=== PATIENT | male | born 1930 | race Caucasian/White ===

== ENCOUNTER → 2016-06-14 | Outpatient (CLI) | payer OTHER ==
[~2016-06-14] MED LIST: ANCEF,KEFZOL1 GM IM; ANCEF,KEFZOL1 GM IV; ATIVAN0.5 MG PO; BUSPAR5 MG PO; CITALOPRAM HBR10 MG PO; CORTIZONE-10 PL57 GM TP; CYANOCOBALAM1000 MCG PO; DOCUSATE SODIU100 MG PO; DULCOLAX10 MG PR; ELIQUIS2.5 MG PO; FLEET MINERAL133 ML PR; FLONASE16 G1 BOTH NARES; GABAPENTIN100 MG PO; GLUCAGEN1 MG IM; GLUTOSE 1537.5 GM PO; HEPARIN SO5000 UNITS SC; LANTUS 10100 UNITS/ SC; LEVEMIR FL100 UNIT/1 SC; LEVEMIR100 UNIT/2 SC; LO-DOSE ASPIRIN81 M1 PO; LOSARTAN-HCTZ1 EAC2 PO; MECLIZINE HCL25 MG PO; MILK OF MAGN PO; NADOLOL40 MG PO; NIFEDIPINE ER60 MG PO; PRAVACHOL80 MG PO; PRAVASTATIN SOD80 MG PO; PROTONIX40 MG PO; SANTYL30 GM TP; TRAMADOL HCL50 MG PO; TYLENOL EXTRA500 MG PO; WELCHOL625 MG PO
== END | disposition home or self-care (01) ==
DX: R13.10 Dysphagia, unspecified (principal); G93.40 Encephalopathy, unspecified
CPT/HCPCS: 92611 GN; G8996 GN; G8997 GN; G8998 GN

== ENCOUNTER 2016-06-22 07:27 | Emergency (ER) | payer OTHER ==
[~2016-06-22] VITALS: Ht 167.6 cm; Wt 48.9 kg
[~2016-06-22 07:27] MED LIST changes: -BUSPAR5 MG PO; -CITALOPRAM HBR10 MG PO; -CYANOCOBALAM1000 MCG PO; -GABAPENTIN100 MG PO; -WELCHOL625 MG PO
[2016-06-22] MEDS ORDERED: LANTUS 10100 UNITS/ SC (07:46)
[2016-06-22] MEDS ORDERED: GABAPENTIN100 MG PO (07:48)
[2016-06-22] MEDS ORDERED: WELCHOL625 MG PO (07:48)
[2016-06-22] MEDS ORDERED: CYANOCOBALAM1000 MCG PO (07:48)
[2016-06-22] MEDS ORDERED: CITALOPRAM HBR10 MG PO (07:48)
[2016-06-22] MEDS ORDERED: BUSPAR5 MG PO (07:49)
[2016-06-22 08:23] VITALS: BP 169/79
== END 2016-06-22 08:55 | disposition home or self-care (01) ==
LOC: EME 07:27
DX: S09.90XA Unspecified injury of head, initial encounter (principal); S00.01XA Abrasion of scalp, initial encounter; W18.09XA Striking against other object with subsequent fall, initial encounter; Y92.009 Unspecified place in unspecified non-institutional (private) residence as the place of occurrence of the external cause; E11.9 Type 2 diabetes mellitus without complications; J44.9 Chronic obstructive pulmonary disease, unspecified; E78.5 Hyperlipidemia, unspecified; I10 Essential (primary) hypertension; I25.2 Old myocardial infarction; Z91.81 History of falling; Z79.4 Long term (current) use of insulin; Z79.82 Long term (current) use of aspirin; Z87.891 Personal history of nicotine dependence
CPT/HCPCS: 99281; 99284

== ENCOUNTER 2016-10-29 04:55 | Emergency (ER) | payer OTHER ==
[~2016-10-29] VITALS: Ht 167.6 cm; Wt 54.0 kg
[~2016-10-29 04:55] MED LIST changes: +BUSPAR5 MG PO; +CITALOPRAM HBR10 MG PO; +CYANOCOBALAM1000 MCG PO; +GABAPENTIN100 MG PO; +WELCHOL625 MG PO
[2016-10-29 06:32] LABS: MCH 30.2 PG (29.0-34.0); MCHC 34.3 G/DL (30.0-36.0); MEAN PLAT.VOLUME 10.7 uM^3 (9.0-12.4); PLATELET COUNT 175 K/uL (156-360); RBC DIS.WIDTH-CV 12.2 % (11.8-14.6); RBC DIS.WIDTH-SD 39.5 % (39-53); WHITE BLOOD COUNT 9.6 K/uL (4.1-10.2)
[2016-10-29 06:44] LABS: CHLORIDE 102 mEq/L (99-109); SODIUM 136 mEq/L (136-147)
[2016-10-29 06:46] LABS: GLUCOSE 156 mg/dL (70-99)
[2016-10-29 06:47] LABS: ANION GAP 8 MEQ/L (2-14)
[2016-10-29 06:50] LABS: GFR ESTIMATE (CALCULATED) > 59 mL/min/
[2016-10-29 06:51] LABS: UREA NITROGEN (BUN) 19 mg/dL (9-23)
[2016-10-29 06:53] LABS: TROP-I INTERPRETATION NEGATIVE; TROPONIN-I < 0.01 ng/mL (0.0-0.30)
[2016-10-29 08:30] VITALS: BP 136/57
== END 2016-10-29 08:31 | disposition home or self-care (01) ==
LOC: EME 04:55
PROVIDERS: Emergency Medicine
PROC: 0HQ0XZZ Repair Scalp Skin, External Approach (ICD-10-PCS; principal; 2016-10-29)
DX: S00.93XA Contusion of unspecified part of head, initial encounter (principal); S30.0XXA Contusion of lower back and pelvis, initial encounter; S01.01XA Laceration without foreign body of scalp, initial encounter; W18.30XA Fall on same level, unspecified, initial encounter; Y92.129 Unspecified place in nursing home as the place of occurrence of the external cause; E11.9 Type 2 diabetes mellitus without complications; J44.9 Chronic obstructive pulmonary disease, unspecified; E78.5 Hyperlipidemia, unspecified; I10 Essential (primary) hypertension; I25.2 Old myocardial infarction; Z79.84 Long term (current) use of oral hypoglycemic drugs; Z79.82 Long term (current) use of aspirin; Z87.891 Personal history of nicotine dependence
CPT/HCPCS: 70450; 72100; 72125; 72220; 80048; 84484; 85027; 93005; 99281; 99285

== ENCOUNTER 2016-11-23 09:56 | Emergency (ER) | payer OTHER ==
[~2016-11-23] VITALS: Ht 167.6 cm; Wt 53.8 kg
[2016-11-23 10:17] LABS: POINT-OF-CARE METER ID UU13113747
[2016-11-23 12:32] VITALS: BP 162/74
== END 2016-11-23 12:33 | disposition home or self-care (01) ==
LOC: EME 09:56
PROVIDERS: Emergency Medicine
PROC: 0HQ0XZZ Repair Scalp Skin, External Approach (ICD-10-PCS; principal; 2016-11-23)
DX: S01.01XA Laceration without foreign body of scalp, initial encounter (principal); W01.198A Fall on same level from slipping, tripping and stumbling with subsequent striking against other object, initial encounter; Y93.9 Activity, unspecified; E11.9 Type 2 diabetes mellitus without complications; J44.9 Chronic obstructive pulmonary disease, unspecified; E78.5 Hyperlipidemia, unspecified; I10 Essential (primary) hypertension; I25.2 Old myocardial infarction; Z79.4 Long term (current) use of insulin; Z79.82 Long term (current) use of aspirin; Z87.891 Personal history of nicotine dependence
CPT/HCPCS: 70450; 71010; 72170; 82948; 99281; 99284

== ENCOUNTER 2017-01-21 21:18 | Emergency (ER) | payer OTHER ==
[~2017-01-21] VITALS: Ht 167.6 cm; Wt 52.3 kg
[2017-01-21 23:55] VITALS: BP 152/71
== END 2017-01-21 23:56 | disposition home or self-care (01) ==
LOC: EME → EDBD 21:18 → EME 23:56
DX: M25.552 Pain in left hip (principal); W18.30XA Fall on same level, unspecified, initial encounter; E11.9 Type 2 diabetes mellitus without complications; Z79.4 Long term (current) use of insulin; I25.2 Old myocardial infarction; E78.5 Hyperlipidemia, unspecified; I10 Essential (primary) hypertension; Z79.82 Long term (current) use of aspirin; Z87.891 Personal history of nicotine dependence
CPT/HCPCS: 73502; 99281; 99284

== ENCOUNTER 2017-12-15 12:09 | Emergency (ER) | payer OTHER ==
[~2017-12-15] VITALS: Ht 167.6 cm; Wt 52.8 kg
[2017-12-15 12:41] LABS: BASOPHIL (%) 0.8 % (0-1); BASOPHIL COUNT 0.1 K/uL (0-0.1); EOSINOPHIL (%) 3.1 % (0-5); EOSINOPHIL COUNT 0.2 K/uL (0-0.3); HEMATOCRIT 40.1 % (38.0-50.0); HEMOGLOBIN 13.8 G/DL (12.5-16.6); IMMATURE GRANULOCYTE (%) 0.3 % (0.0-0.7); LYMPHOCYTE (%) 24.8 % (15-42); LYMPHOCYTE COUNT 1.6 K/uL (1.0-2.8); MCH 31.2 PG (29.0-34.0); MCHC 34.4 G/DL (30.0-36.0); MCV 90.7 FL (86-99); MONOCYTE COUNT 0.7 K/uL (0-0.8); NEUTROPHIL COUNT 3.9 K/uL (1.8-6.4); PLATELET COUNT 161 K/uL (156-360); RBC DIS.WIDTH-CV 12.9 % (11.8-14.6); RBC DIS.WIDTH-SD 42.5 % (39-53); RED BLOOD COUNT 4.42 M/uL (4.00-5.50); WHITE BLOOD COUNT 6.5 K/uL (4.1-10.2)
[2017-12-15 12:53] LABS: ALBUMIN 3.8 g/dL (3.2-4.8); CHLORIDE 104 mEq/L (99-109); POTASSIUM 4.1 mEq/L (3.7-5.4); SODIUM 139 mEq/L (136-147)
[2017-12-15 12:55] LABS: GLUCOSE 88 mg/dL (70-99); TOTAL PROTEIN 6.6 g/dL (6.4-8.3)
[2017-12-15 12:57] LABS: TOTAL BILIRUBIN 0.5 mg/dL (0.0-1.0)
[2017-12-15 12:59] LABS: ALKALINE PHOSPHATASE 62 IU/L (3-129); CREATININE 0.9 mg/dL (0.6-1.3); GFR ESTIMATE (CALCULATED) > 59 mL/min/ (58.99-99999)
[2017-12-15 13:00] LABS: UREA NITROGEN (BUN) 22 mg/dL (9-23)
[2017-12-15 13:01] LABS: AST (GOT) 17 IU/L (2-34)
[2017-12-15 13:02] LABS: ALT (GPT) 14 IU/L (3-49); TROP-I INTERPRETATION NEGATIVE; TROPONIN-I < 0.01 ng/mL (0.0-0.30)
[2017-12-15 14:39] LABS: APPEARANCE CLEAR ((CLEAR)); BILIRUBIN NEGATIVE; BLOOD NEGATIVE; COLOR YELLOW ((YELLOW)); GLUCOSE (STRIP) NEGATIVE; KETONES NEGATIVE; LEUKOCYTES NEGATIVE; NITRITE NEGATIVE; PROTEIN (STRIP) 30; SPECIFIC GRAVITY 1.017 (1.000-1.030); UCUL ADDED? NO; UROBILINOGEN 0.2 MG/DL (0.2-1.0)
[2017-12-15 16:10] VITALS: BP 141/54
== END 2017-12-15 16:12 ==
LOC: EME 12:09
PROVIDERS: Emergency Medicine
DX: R55 Syncope and collapse (principal); W18.30XA Fall on same level, unspecified, initial encounter; I10 Essential (primary) hypertension; E11.9 Type 2 diabetes mellitus without complications; E78.5 Hyperlipidemia, unspecified; J43.9 Emphysema, unspecified; F41.9 Anxiety disorder, unspecified; F03.90 Unspecified dementia, unspecified severity, without behavioral disturbance, psychotic disturbance, mood disturbance, and anxiety; I25.2 Old myocardial infarction; Z79.4 Long term (current) use of insulin; Z79.82 Long term (current) use of aspirin; Z91.81 History of falling; Z87.891 Personal history of nicotine dependence; Z88.0 Allergy status to penicillin
CPT/HCPCS: 70450; 71045; 72125; 80053; 81003; 84484; 85025; 93005; 99281; 99284; J7040

== ENCOUNTER 2018-02-01 12:10 | Emergency (ER) | payer OTHER ==
[~2018-02-01] VITALS: Ht 167.6 cm; Wt 65.0 kg
[2018-02-01 12:41] LABS: BASOPHIL (%) 0.4 % (0-1); EOSINOPHIL (%) 1.6 % (0-5); EOSINOPHIL COUNT 0.1 K/uL (0-0.3); HEMATOCRIT 40.9 % (38.0-50.0); HEMOGLOBIN 14.1 G/DL (12.5-16.6); IMMATURE GRANULOCYTE (%) 0.3 % (0.0-0.7); LYMPHOCYTE (%) 24.3 % (15-42); LYMPHOCYTE COUNT 1.8 K/uL (1.0-2.8); MCH 31.3 PG (29.0-34.0); MCHC 34.5 G/DL (30.0-36.0); MCV 90.9 FL (86-99); MONOCYTE (%) 9.3 % (3-12); MONOCYTE COUNT 0.7 K/uL (0-0.8); NEUTROPHIL (%) 64.1 % (45-76); NEUTROPHIL COUNT 4.8 K/uL (1.8-6.4); PLATELET COUNT 153 K/uL (156-360); RBC DIS.WIDTH-CV 13.2 % (11.8-14.6); RBC DIS.WIDTH-SD 43.9 % (39-53); WHITE BLOOD COUNT 7.4 K/uL (4.1-10.2)
[2018-02-01 12:51] LABS: CHLORIDE 104 mEq/L (99-109); POTASSIUM 4.2 mEq/L (3.7-5.4); SODIUM 138 mEq/L (136-147)
[2018-02-01 12:52] LABS: GLUCOSE 107 mg/dL (70-99)
[2018-02-01 12:56] LABS: CREATININE 0.9 mg/dL (0.6-1.3); GFR ESTIMATE (CALCULATED) > 59 mL/min/ (58.99-99999)
[2018-02-01 12:57] LABS: UREA NITROGEN (BUN) 26 mg/dL (9-23)
[2018-02-01 13:50] VITALS: BP 143/61
== END 2018-02-01 15:23 ==
LOC: EME 12:10
PROVIDERS: Emergency Medicine
DX: J02.9 Acute pharyngitis, unspecified (principal); R49.0 Dysphonia; R47.81 Slurred speech; R07.9 Chest pain, unspecified; R13.10 Dysphagia, unspecified; R00.1 Bradycardia, unspecified; I10 Essential (primary) hypertension; E78.5 Hyperlipidemia, unspecified; I25.2 Old myocardial infarction; Z79.82 Long term (current) use of aspirin; E11.9 Type 2 diabetes mellitus without complications; Z79.4 Long term (current) use of insulin; Z88.0 Allergy status to penicillin; Z87.891 Personal history of nicotine dependence
CPT/HCPCS: 70450; 71045; 80048; 85025; 93005; 99281; 99284